=== PATIENT | male | born 1965 | race Caucasian/White ===

== ENCOUNTER 2017-06-23 05:34 | Inpatient (IN) | payer OTHER ==
--- NOTE | 2017-05-28 12:12 | PAT Medication Instructions ---
Service Date May 28, 2017. Current Home Medication List Atorvastatin (Lipitor), 20 MG PO QPM Levothyroxine Sodium (Synthroid), 150 MCG PO QPM Medication Instructions For Your Scheduled Surgery - Take the following medications as scheduled the night before surgery: Atorvastatin (Lipitor), 20 MG PO QPM Levothyroxine Sodium (Synthroid), 150 MCG PO QPM If you have any questions please call us at [phone] or [phone] or [phone]
--- NOTE | 2017-05-28 13:08 | DIAGNOSTIC IMAGING REPORT ---
CHEST 2 VIEWS ROUTINE HISTORY: Preop. COMPARISON: None. FINDINGS: The lungs are clear. Cardiac silhouette is normal in size. No pleural effusions. No pneumothorax. IMPRESSION: No acute process. Electronically signed by: Austin Henderson M.D. 05/28/2017 1:07 PM Dictated Date/Time: 05/28/2017 1:05 PM
[2017-05-28 13:21] LABS: BASO % 0.2 %; BASO ABS # 0.02 K/uL (0-0.2); COMPLETE YES; EOS % 2.8 %; HEMATOCRIT 46.1 % (42-52); IG% 0.3 %; LYMPH % 23.5 %; LYMPH ABS # 2.59 K/uL (1.2-3.4); MEAN CELL VOLUME 101.3 fL (80-100); MEAN CORPUSCULAR HEMOGLOBIN 34.7 pg (25-34); MEAN CORPUSCULAR HGB CONC 34.3 g/dl (32-36); MEAN PLATELET VOLUME 10.3 fL (7.4-10.4); NEUT % 66.2 %; PLATELET COUNT 182 K/uL (130-400); RED BLOOD COUNT 4.55 M/uL (4.7-6.1); WHITE BLOOD COUNT 11.03 K/uL (4.8-10.8)
[2017-05-28 13:30] LABS: PARTIAL THROMBOPLASTIN RATIO 1.1; PROTHROMBIN TIME (PATIENT) 10.5 SECONDS (9.0-12.0)
[2017-05-28 13:32] LABS: URINE APPEARANCE CLEAR (CLEAR); URINE BILIRUBIN NEG (NEG); URINE COLOR YELLOW; URINE EPITHELIAL CELL AUTO 0-5 /lpf (0-5); URINE NITRITE NEG (NEG); URINE SPECIFIC GRAVITY 1.017 (1.000-1.030); UROBILINOGEN NEG (NEG); ZZUR CULT IF INDIC CLEAN CATCH NO
[2017-05-28 13:36] LABS: MANUAL MICROSCOPIC REQUIRED? NO; REVIEW REQ? NO
[2017-05-28 14:14] LABS: BUN/CREATININE RATIO 6.1 (10-20); CALCIUM 8.7 mg/dl (8.5-10.1); CREATININE 0.87 mg/dl (0.60-1.40); POTASSIUM 3.5 mmol/L (3.5-5.1)
[2017-06-23] VITALS (16 sets, daily range): BP systolic 111–142; BP diastolic 69–84; PULSE 66–76; TEMP 36.5–37; O2SAT 92–97; Ht 180.3 cm; Wt 99.0 kg
[~2017-06-23] VITALS: Ht 180.3 cm; Wt 99.0 kg
[~2017-06-23 05:34] MED LIST: ATOR-22 PO; LEVO150T PO
[2017-06-23] MEDS ORDERED: NAPR1TAB9 PO (06:00)
[2017-06-23] MEDS ORDERED: LACTATED RINGER'S 1000ML 1,000 ML IV SCH (06:00)
[2017-06-23] MEDS ORDERED: CEFAZOLIN 2000MG IV PUSH 10 ML IV SCH (06:00)
[2017-06-23] MEDS ORDERED: MIDAZOLAM HCL 1 MG/ML 2ML VIAL ONE (06:36)
[2017-06-23] MEDS ORDERED: FENTANYL CITRATE INJ 50 MCG/1 ML 2 ML VIAL ONE ×2 (06:36→08:00)
[2017-06-23] MEDS ORDERED: BACITRACIN 50000 UNIT VIAL ONE (06:54)
[2017-06-23] MEDS ORDERED: FLUMAZENIL 0.1 MG/1 ML 10 ML VIAL IV PRN (07:15)
[2017-06-23] MEDS ORDERED: ONDANSETRON INJ 2 MG/ML 2 ML VIAL IV PRN ×2 (07:15→09:30)
[2017-06-23] MEDS ORDERED: PHENYLEPHRINE 100MCG/ML 5ML SYR IV PRN (07:15)
[2017-06-23] MEDS ORDERED: LABETALOL HCL IV 5 MG/ML 20ML IV PRN (07:15)
[2017-06-23] MEDS ORDERED: EpHEDrine SULFATE INJ 50 MG/ML AMP IV PRN (07:15)
[2017-06-23] MEDS ORDERED: NALOXONE HCL 0.4 MG/1 ML VIAL/CARP IV PRN ×2 (07:15→09:30)
[2017-06-23] MEDS ORDERED: ATROPINE SULFATE 0.1 MG/ML 5ML SYR IV PRN (07:15)
[2017-06-23] MEDS ORDERED: HYDROmorphone INJ 2 MG/ML SYR/VIAL IV PRN (07:15)
[2017-06-23] MEDS ORDERED: MEPERIDINE HCL 25 MG/ML CARP IV PRN (07:15)
[2017-06-23] MEDS ORDERED: FENTANYL CITRATE INJ 50 MCG/1 ML 2 ML VIAL IV PRN (07:15)
[2017-06-23] MEDS ORDERED: NICO21DI35 TD (07:16)
--- NOTE | 2017-06-23 07:27 | History & Physical Bridge Note ---
H&P Re-Evaluation Bridge Note: I have examined the patient, reviewed the History & Physical and in the interval since the performance of the History & Physical I have noted the following changes of clinical significance: No changes noted
--- NOTE | 2017-06-23 07:28 | History and Physical ---
History & Physical Date Jun 23, 2017. Chief Complaint Neck and arm pain History of Present Illness The patient is a 51 year old male with complaints of neck and arm pain Additional History Hepatic Disease: No Endocrine Disorder: No Kidney Disease: No Hypertension: No Heart Disease: No Bleeding Tendencies: No Infectious Diseases: No Allergies Coded Allergies: No Known Allergies (Unverified , 06/23/17) Home Medications Scheduled Atorvastatin (Lipitor), 20 MG PO QPM Levothyroxine Sodium (Synthroid), 150 MCG PO QPM Naproxen (Aleve), 440 MG PO prn Nicotine (Nicoderm Cq 21MG Patch), 1 PATCH TD DAILY Physical Examination Skin: warm/dry, no rash Eyes: normal inspection, EOMI, sclerae normal ENT: normal ENT inspection, pharynx normal Head: normocephalic, atraumatic Neck: supple, no adenopathy, trachea midline Respiratory/Chest: lungs clear, normal breath sounds, no respiratory distress Cardiovascular: regular rate, rhythm, no edema, no murmur Abdomen / GI: normal bowel sounds, non tender Back: normal inspection Extremities: normal inspection, normal range of motion Neurologic/Psych: no motor/sensory deficits, alert, normal reflexes, oriented x 3 Diagnosis Cervical spinal stenosis Plan of Treatment C6 corpectomy with anterior cervical fusion C5 to C7
[2017-06-23] MEDS ORDERED: HYDROmorphone INJ 2 MG/ML SYR/VIAL ONE ×2 (08:00→09:26)
[2017-06-23] MEDS ORDERED: SODIUM CHLORIDE 0.9% PF 50 ML VIAL ONE (08:11)
[2017-06-23] MEDS ORDERED: LIDOCAINE HCL 2% 2 ML VIAL (20MG/ML) ONE (09:01)
[2017-06-23] MEDS ORDERED: PROPOFOL IV EMULSION 10 MG/ML 20 ML VIAL IV ONE (09:01)
[2017-06-23] MEDS ORDERED: DEXAMETHASONE SOD INJ 4 MG/ML VIAL ONE (09:01)
[2017-06-23] MEDS ORDERED: ONDANSETRON INJ 2 MG/ML 2 ML VIAL ONE ×2 (09:01→09:43)
[2017-06-23] MEDS ORDERED: FLOSEAL HEMOSTATIC MATRIX 10ML TOP ONE (09:27)
[2017-06-23] MEDS ORDERED: LORAZEPAM 0.5 MG TAB PO PRN (09:30)
[2017-06-23] MEDS ORDERED: HYDROmorphone INJ 0.5 MG/0.5 ML SYR IV PRN (09:30)
[2017-06-23] MEDS ORDERED: DO NOT ADMINISTER PNEUMOCOCCAL VACCINE PRN ×2 (09:30)
[2017-06-23] MEDS ORDERED: DO NOT ADMINISTER FLU VACCINE PRN ×3 (09:30)
[2017-06-23] MEDS ORDERED: MAGNESIUM HYDROXIDE SUSP 30 ML UDC PO PRN (09:30)
[2017-06-23] MEDS ORDERED: DiphenhydrAMINE HCL 50 MG/ML VIAL IV PRN (09:30)
[2017-06-23] MEDS ORDERED: OXYCODONE HCL IR 5 MG TAB (IMMEDIATE RELEASE) PO PRN (09:30)
[2017-06-23] MEDS ORDERED: DEXAMETHASONE INJ 8 MG in SYRINGE 0 ML IV PRN (09:30)
[2017-06-23] MEDS ORDERED: RACEPINEPHRINE 2.25% NEBU SOLN 0.5 ML VIAL INH PRN (09:30)
[2017-06-23] MEDS ORDERED: ACETAMINOPHEN IV 100 ML IV PRN (09:30)
[2017-06-23] MEDS ORDERED: LORAZEPAM INJ 0.5 MG in SYRINGE 0.75 ML IV PRN (09:30)
--- NOTE | 2017-06-23 09:33 | [facility] Operative Report ---
Operative Report Operative Date Jun 23, 2017. Pre-Operative Diagnosis Cervical Spinal Stenosis C6 Post-Operative Diagnosis Same as preop Procedure(s) Performed #1 anterior cervical corpectomy C6. #2 anterior cervical arthrodesis C5 to C7. #3 placement peek cage 25 mm in height C5 to C7. #4 placement of locally harvested morcellized autograft combined with ostial amp bone graft in the interbody cage. #5 application of soliz plate and screws from C5 to C7. Surgeon Dr. Sandoval Powerhouse Electrician Apprentice Surgeon(s) Leilani Velez PA-C Estimated Blood Loss 40 ml Findings Severe spinal stenosis Specimens None per Surgeon Description of Procedure Patient was met with preoperatively case discussed all questions addressed. After informed consent was obtained patient was taken to the operative suite underwent intubation placed in a supine position on the Manny table with the head in Valencia headholder. All bony prominences well-padded eyes inspected to ensure no external pressure placed upon them. With the assistance of fluoroscopy identified the C6 vertebral body and a transverse incision was placed on the right anterior aspect of the cervical spine. Sharp dissection with the assistance of bipolar cautery was performed onto an exposing the anterior cervical spine from C5 to C7. Self retaining retractors placed. We verified our position with fluoroscopy. Then performed a complete discectomy out to the uncovertebral joints bilaterally C5 6 followed by C6 7. Snook distracting pins were then placed in C5 and C7 to distract across the C6 vertebral body. Complete corpectomy was then performed including removal of all posterior annular fibers and longitudinal ligament and bilateral foraminotomies addressing severe stenosis. After this was complete endplates were burred to subcortical bleeding bone and a 25 mm peek cage filled with locally harvested morcellized autograft and ostial amp bone graft tapped in position. Distracting apparatus was removed. All anterior Ross writes burred to a smooth cortical surface and a soliz plate and screws applied with the assistance of fluoroscopy. Incision was in copious irrigated explored to ensure there is no damage to surrounding structures remaining bleeding and a 10 round SHERON drain inserted. Incision was then closed with 2 Vicryl fascia for Monocryl for final skin closure Steri-Strips sterile dressings placed. Patient we can take PACU stable condition. Please note Leilani Piña was present at the entire procedure involved in patient positioning complex portions of the surgeon final skin closure. I attest to the content of the Intraoperative Record and any orders documented therein. Any exceptions are noted below.
[2017-06-23] MEDS ORDERED: GLYCOPYRROLATE INJ 0.2 MG/ML VIAL ONE (09:43)
[2017-06-23] MEDS ORDERED: NEOSTIGMINE METHYLSULFATE 1 MG/ML 10ML VIAL ONE (09:43)
[2017-06-23] MEDS ORDERED: EpHEDrine SULFATE 50MG/5ML SYR ONE (09:43)
[2017-06-23] MEDS ORDERED: PHENYLEPHRINE 100MCG/ML 5ML SYR ONE (09:43)
[2017-06-23] MEDS ORDERED: NURSING VERBAL MED ORDER ONE (10:00)
--- NOTE | 2017-06-23 10:02 | DIAGNOSTIC IMAGING REPORT ---
INTRAOPERATIVE CERVICAL SPINE 4 VIEWS. CLINICAL HISTORY: ACDF C5-C7/ C6 CORPECTOMY COMPARISON STUDY: No previous studies for comparison. FINDINGS: 15 seconds of fluoroscopic time was utilized. 4 intraoperative fluoroscopic spot images were acquired. There is limited visualization of the lower cervical spine due to overlying shoulders. The patient appears to be status post a C6 corpectomy with a C5-C7 anterior cervical spinal fusion with metallic plate and screws the C5 and C7 levels. IMPRESSION: Postsurgical changes as described above. Electronically signed by: Kamran Yan M.D. 06/23/2017 10:01 AM Dictated Date/Time: 06/23/2017 9:59 AM
[2017-06-23] MEDS ORDERED: PROMETHAZINE HCL INJ 12.5 MG in SODIUM CHLORIDE 0.9% 50ML 50 ML IV ONE (10:15)
--- NOTE | 2017-06-23 10:58 | Anesthesiology Progress Note ---
Anesthesia Post Op Note Date & Time Jun 23, 2017 at 10:57 Vital Signs Pain Intensity: 0 Vital Signs Past 12 Hours Date Time Temp Pulse Resp B/P (MAP) Pulse Ox O2 Delivery O2 Flow Rate FiO2 06/23/17 10:43 65 15 06/23/17 10:43 66 15 94 06/23/17 10:41 105/67 06/23/17 10:38 62 20 92 06/23/17 10:38 63 20 06/23/17 10:36 114/70 06/23/17 10:34 118/70 06/23/17 10:33 68 19 06/23/17 10:33 69 19 92 06/23/17 10:31 97/70 06/23/17 10:28 64 1 06/23/17 10:28 64 1 93 06/23/17 10:26 102/70 06/23/17 10:23 64 18 06/23/17 10:23 64 18 92 06/23/17 10:21 107/67 06/23/17 10:18 64 10 91 06/23/17 10:18 65 10 06/23/17 10:16 107/71 06/23/17 10:15 68 20 107/71 91 Nasal Cannula 4 06/23/17 10:13 66 1 91 06/23/17 10:13 66 1 06/23/17 10:11 111/68 06/23/17 10:08 63 15 92 06/23/17 10:08 63 15 06/23/17 10:05 68 24 111/69 94 Nasal Cannula 4 06/23/17 10:05 111/69 06/23/17 10:03 67 2 94 06/23/17 10:03 67 2 06/23/17 10:01 82/39 06/23/17 09:58 71 20 06/23/17 09:58 71 20 92 06/23/17 09:56 111/65 06/23/17 09:55 67 23 111/65 91 Oxymask 13 06/23/17 09:53 34 06/23/17 09:53 85 34 06/23/17 09:51 108/59 06/23/17 09:48 69 18 93 06/23/17 09:48 69 18 06/23/17 09:46 116/68 06/23/17 09:45 36.5 71 20 116/68 93 Oxymask 13 06/23/17 09:43 79 21 93 06/23/17 09:43 79 21 06/23/17 09:41 121/70 06/23/17 09:39 120/72 06/23/17 09:38 36.3 77 16 120/72 91 Oxymask 13 06/23/17 05:55 36.9 72 18 127/83 97 Room Air Notes Mental Status: alert / awake / arousable, participated in evaluation Pt Amnestic to Procedure: Yes Nausea / Vomiting: adequately controlled Pain: adequately controlled Airway Patency, RR, SpO2: stable & adequate BP & HR: stable & adequate Hydration State: stable & adequate Anesthetic Complications: no major complications apparent The patient is awake and comfortable. His neck has no swelling. His vital signs are stable.
[2017-06-23] MEDS ORDERED: SCOPOLAMINE 1.5 MG TDSY TD ONE (12:15)
[2017-06-23] MEDS: SODIUM CHLORIDE 0.9% 1000ML 1,000 ML IV SCH (12:27)
[2017-06-23] MEDS ORDERED: RXC5 PO (13:16)
--- NOTE | 2017-06-23 13:16 | Discharge Instructions ---
Discharge Instructions Date of Service Jun 23, 2017. Admission Reason for Admission: Cervical Spinal Stenosis Discharge Discharge Diagnosis / Problem: cervical spinal stenosis Discharge Goals Goal(s): Improve function Activity Recommendations Activity Limitations: per Instructions/Follow-up section . Instructions / Follow-Up Instructions / Follow-Up ACTIVITY RECOMMENDATIONS: SELF CARE INSTRUCTIONS AFTER THORACIC/LUMBAR FUSIONS 1. You may walk to your tolerance. It is good exercise for your legs and back. Expect some back and intermittent leg aches and pains. 2. You may perform "counter-top" level activities (make a sandwich, mira with a project, etc.). 3. No bending or lifting of more than 10 pounds or back twisting of any nature (roll like a log when turning in bed). 4. You may ride in a car for 20-30 minutes at a time. No driving until after your first visit with your doctor. 5. Frequent changes of position and restricting sitting to 30 minutes at a time will help limit the amount of back spasms and stiffness you may experience. 6. You may discontinue the use of ambulatory aids (cane, crutches, etc.) once your strength and confidence allow. 7. You may hospitality internship the shower and let water strike your incision when you arrive home at least once daily. Do not take a tub bath, sit in a hot tub or go into a swimming pool until after your first recheck in the office. SPECIAL CARE INSTRUCTIONS: VERY IMPORTANT TO READ AND REVIEW A. Your surgical incision has been closed with a cosmetic suture under the skin that will dissolve in about 6 weeks. In 14 days, you can use a pair of clean scissors and cut the suture that is left outside of the skin at the ends of your incision. 1. The small skin tapes can be removed 7 days after surgery if they have not fallen off by that point. 2. You may keep the wound open to air as much as possible to promote healing after post-op day number 5 unless told otherwise by your doctor. 3. If you think the wound looks like it is becoming infected (redness or worsening drainage) and/or you are experiencing fever, chill or worsening back pain and muscle spasms, contact the office so that we may evaluate you as soon as possible. B. Complications are uncommon, but please contact us if you have any signs or symptoms of: 1. wound infection (fever higher than 102.5 degrees F, redness, separation of wound, drainage, or increasing pain from the incision) 2. blood clots in legs (pain, swelling, redness and warmth in legs) 3. urinary tract infection (fever higher than 102.5 degrees F, burning upon urination or increased frequency of urination) 4. nerve problems (inability to walk on your toes or heels, numbness, loss of bowel or bladder control) 5. any other symptoms that concern you C. Please call the office at if you have any concerns or questions about your operation or recovery. D. No smoking! Smoking drastically decreases the chance of a solid fusion. E. Do not take any anti-inflammatory medications (Indocin, Advil, Motrin, Aspirin, Naprosyn, etc.) as these may inhibit the chance of a solid fusion. Tylenol is okay to take for pain. MANAGING PAIN AFTER SPINAL SURGERY 1. Narcotic medication is intended for short-term use and will be provided for surgical pain. Surgical pain usually lasts for a period of 4-6 weeks. Narcotic medication includes Percocet, Vicodin, Darvocet, Tylenol #3 or Lortab. 2. Longer-term pain is more appropriately treated with non-narcotic medication such as Tylenol ES. 3. Muscle spasm is not appropriately treated with narcotics. Muscle relaxers such as Soma, Flexeril or Skelaxin can be used along with Tylenol ES. 4. Remember that we all live with some "aches and pains". This is not unusual or uncommon after an injury or as we get older. a. Back pain is expected and may include muscle spasms for 4 to 6 weeks after surgery. The pain should gradually improve. If the pain worsens for no apparent reason, please contact the office. b. Intermittent leg pain may also be experienced and should not be concerned about unless it worsens for no apparent reason. If so, please contact the office. 5. We will provide appropriate medication within the normal guidelines of their prescribed use. We will also be very cautious and aware of potential abuse and extended duration of patients' medication needs. a. Pain medications are for your comfort and to assist with sleep and rest so that the tissue can heal. They are not provided in order to return to normal activity and should not be used through the day. To do so or worsening pain at night can result from ongoing tissue damage and development of tolerance to the prescribed medicine. 6. Please allow 2-3 days to process refills. Prescriptions will not be mailed but must be picked up at the office. FOLLOW UP VISIT: Keep your scheduled follow-up appointment. Any questions, please call the office at . Current Hospital Diet Patient's current hospital diet: Clear Liquid Diet Discharge Diet Recommended Diet: Regular Diet Procedures Procedures Performed: #1 anterior cervical corpectomy C6. #2 anterior cervical arthrodesis C5 to C7. #3 placement peek cage 25 mm in height C5 to C7. #4 placement of locally harvested morcellized autograft combined with ostial amp bone graft in the interbody cage. #5 application of soliz plate and screws from C5 to C7. Pending Studies Studies pending at discharge: no Medical Emergencies . Who to Call and When: Medical Emergencies: If at any time you feel your situation is an emergency, please call 911 immediately. . Non-Emergent Contact Non-Emergency issues call your: Primary Care Provider . "Provider Documentation" section prepared by Ramesh Sandoval. . VTE Core Measure Inpt VTE Proph given/why not?: Clifton Staples, SCD's
[2017-06-23] MEDS: CEFAZOLIN IV 2,000 MG in SYRINGE 0 ML IV SCH (15:37)
[2017-06-23] MEDS: CHECK SCOPOLAMINE PATCH PLACEMENT SCH (15:38)
[2017-06-23] MEDS: DEXAMETHASONE INJ 6 MG in SYRINGE 0 ML IV SCH (17:36)
[2017-06-23] MEDS: DOCUSATE SODIUM 100 MG CAP PO SCH (20:30)
[2017-06-23] MEDS ORDERED: ATORVASTATIN 20 MG TAB PO SCH (21:00)
[2017-06-23] MEDS ORDERED: LEVOTHYROXINE 150 MCG TAB PO SCH (21:00)
[2017-06-24] VITALS (12 sets, daily range): BP systolic 101–127; BP diastolic 57–74; PULSE 66–90; TEMP 36.4–37.1; O2SAT 91–93
[2017-06-24] MEDS: CHECK SCOPOLAMINE PATCH PLACEMENT SCH ×2 (00:04→08:00)
[2017-06-24] MEDS: SODIUM CHLORIDE 0.9% 1000ML 1,000 ML IV SCH (00:04)
[2017-06-24] MEDS: CEFAZOLIN IV 2,000 MG in SYRINGE 0 ML IV SCH ×2 (00:07→07:39)
[2017-06-24] MEDS: DEXAMETHASONE INJ 6 MG in SYRINGE 0 ML IV SCH ×2 (02:11→09:38)
--- NOTE | 2017-06-24 07:58 | Anesthesiology Progress Note ---
Anesthesia Post Op Note Date & Time Jun 24, 2017 at 07:57 Vital Signs Pain Intensity: 0.0 Vital Signs Past 12 Hours Date Time Temp Pulse Resp B/P (MAP) Pulse Ox O2 Delivery O2 Flow Rate FiO2 06/24/17 07:37 73 16 93 Room Air 06/24/17 07:26 Room Air 06/24/17 07:07 37.0 72 18 127/71 (89) 92 Room Air 06/24/17 06:20 37.1 73 22 119/68 92 Room Air 06/24/17 04:30 36.8 66 20 101/57 92 Humidified Oxygen 2.0 06/24/17 03:45 68 16 92 Nasal Cannula 0.5 06/24/17 02:30 36.8 74 22 101/57 92 Nasal Cannula 2.0 06/24/17 00:32 92 Humidified Oxygen 2.0 06/24/17 00:30 36.5 80 20 126/69 91 Humidified Oxygen 1.0 06/23/17 23:42 68 16 93 Nasal Cannula 0.5 06/23/17 22:30 36.5 20 126/69 92 Humidified Oxygen 1.0 06/23/17 20:30 37.0 73 18 115/71 94 Humidified Oxygen 1.0 06/23/17 20:20 75 16 94 Room Air Notes Mental Status: alert / awake / arousable, participated in evaluation Pt Amnestic to Procedure: Yes Nausea / Vomiting: adequately controlled Pain: adequately controlled Airway Patency, RR, SpO2: stable & adequate BP & HR: stable & adequate Hydration State: stable & adequate Anesthetic Complications: no major complications apparent
[2017-06-24] MEDS: DOCUSATE SODIUM 100 MG CAP PO SCH (08:39)
[2017-06-24] MEDS ORDERED: NICOTINE 21 MG/24 HR TDSY TD SCH (09:00)
--- NOTE | 2017-06-24 12:26 | Discharge Summary ---
Orthopedic Discharge Summary Admission Date/Reason Jun 23, 2017 at 09:30 Cervical Spinal Stenosis. Discharge Date/Disposition Jun 24, 2017 Home Diagnosis Principal Diagnosis: Cervical spinal stenosis Admission Physical Exam As per Admitting History & Physical. Hospital Course Patient underwent anterior corpectomy and fusion tolerated this well orthopedic floor postoperatively. Postoperative day #1 a swallowing well tolerating foods arm symptoms improved. Substernally discharge home. Discharge orders and instructions found the chart for further. Discharge Instructions Please refer to the electronic Patient Visit Report (Discharge Instructions) for additional information.
[2017-06-25] MEDS ORDERED: BISACODYL 10 MG SUPP PR PRN (06:00)
[2017-06-25] MEDS ORDERED: BISACODYL 5 MG TABEC PO PRN (06:00)
[2017-06-25] MEDS ORDERED: POLYETHYLENE (MIRALAX) 17 GM PACK PO SCH (09:00)
== END 2017-06-24 13:15 | disposition home or self-care (01) | DRG 473 ==
LOC: C.ACU 05:34 → C.3E 09:30 → ENRESERV 10:23
PROVIDERS: ADMIT Orthopaedic Surgery Orthopaedic Surgery of the Spine; ATTEND Orthopaedic Surgery Orthopaedic Surgery of the Spine
PROC: 0RG10A0 Fusion of Cervical Vertebral Joint with Interbody Fusion Device, Anterior Approach, Anterior Column, Open Approach (ICD-10-PCS; principal; 2017-06-23 07:45)
PROC: 01N10ZZ Release Cervical Nerve, Open Approach (ICD-10-PCS; principal; 2017-06-23 07:45)
PROC: 0RT30ZZ Resection of Cervical Vertebral Disc, Open Approach (ICD-10-PCS; principal; 2017-06-23 07:45)
DX: M48.02 Spinal stenosis, cervical region (principal); M54.12 Radiculopathy, cervical region; E89.0 Postprocedural hypothyroidism; E78.5 Hyperlipidemia, unspecified; F17.200 Nicotine dependence, unspecified, uncomplicated; E66.9 Obesity, unspecified; Z68.30 Body mass index [BMI] 30.0-30.9, adult; Z79.899 Other long term (current) drug therapy

== ENCOUNTER → 2017-11-19 | Outpatient (CLI) | payer OTHER ==
[~2017-11-19] MED LIST changes: +ACET-1311 PO
[2017-11-19 14:36] LABS: BASO % 0.2 %; BASO ABS # 0.02 K/uL (0-0.2); EOS % 1.9 %; HEMATOCRIT 47.1 % (42-52); IG# 0.02 K/uL (0.00-0.02); LYMPH % 29.9 %; LYMPH ABS # 3.12 K/uL (1.2-3.4); MEAN CELL VOLUME 96.7 fL (80-100); MEAN CORPUSCULAR HEMOGLOBIN 34.9 pg (25-34); MEAN CORPUSCULAR HGB CONC 36.1 g/dl (32-36); MEAN PLATELET VOLUME 10.3 fL (7.4-10.4); MONO % 6.2 %; MONO ABS # 0.65 K/uL (0.11-0.59); NEUT % 61.6 %; NEUT ABS # 6.44 K/uL (1.4-6.5); PLATELET COUNT 187 K/uL (130-400); RED CELL DISTRIBUTION WIDTH CV 13.3 % (11.5-14.5); RED CELL DISTRIBUTION WIDTH SD 46.9 fL (36.4-46.3); WHITE BLOOD COUNT 10.45 K/uL (4.8-10.8)
[2017-11-19 20:26] LABS: BLOOD UREA NITROGEN 8 mg/dl (7-18); CALCIUM 8.8 mg/dl (8.5-10.1); CARBON DIOXIDE 21 mmol/L (21-32); CREATININE 0.99 mg/dl (0.60-1.40); GLUCOSE 79 mg/dl (70-99); POTASSIUM 3.7 mmol/L (3.5-5.1); SODIUM 141 mmol/L (136-145)
== END | disposition home or self-care (01) ==
LOC: C.LAB 13:13
PROVIDERS: ATTEND Orthopaedic Surgery Orthopaedic Surgery of the Spine
DX: Z01.812 Encounter for preprocedural laboratory examination (principal)